=== PATIENT | male | born 1985 | race Caucasian/White ===

== ENCOUNTER 2018-10-04 01:45 | Emergency (ER) | payer SELFPAY ==
[~2018-10-04] VITALS: Ht 175.3 cm; Wt 78.5 kg
[2018-10-04 02:01] VITALS: Ht 175.3 cm; Wt 78.5 kg
[2018-10-04 04:06] VITALS: BP 160/88
== END 2018-10-04 04:06 | disposition home or self-care (01) ==
LOC: ED 01:45
DX: E86.0 Dehydration (principal); R42 Dizziness and giddiness; R03.0 Elevated blood-pressure reading, without diagnosis of hypertension; R51 Headache